=== PATIENT | male | born 1990 | race Caucasian/White ===

== ENCOUNTER 2017-07-26 20:42 | Emergency (ER) | payer MEDICAID ==
[~2017-07-26] VITALS: Ht 180.3 cm; Wt 57.6 kg
--- NOTE | 2017-07-26 20:50 | NUR ---
MARIBEL FOR A WITNESSED SEIZURE WHILE ROCK CLIMBING. PT AAOX3. MD AT FOR EVAL. NO ORAL TRAUMA NOTED. DENIES FALL, HEAD/NECK TRAUMA. NOTED ROPE LEVY FROM NECK AND LEFT SHOULDER AREA FROM BELAYING. IV ACCESS [employer]. VSS. SEIZURE PRECAUTIONS IMPLEMENTED. SAFETY AND COMFORT MEASURES PROVIDED. WILL MONITOR.
[2017-07-26] MEDS ORDERED: LORAZEPAM INJ 2 MG/ML VIAL ONE (21:02)
--- NOTE | 2017-07-26 21:04 | NUR ---
PT ACTIVELY HAVING A SEIZURE. DR RODRIGUES AWARE. ATIVAN 1MG IVP GIVEN PER ERMD VERBAL ORDER.
[2017-07-26] MEDS ORDERED: LEVETIRACETAM (500MG) 500 MG/5 ML VIAL IV ONE (21:11)
--- NOTE | 2017-07-26 21:15 | NUR ---
PT MEDICATED ORDERED. SEIZURE PRECAUTIONS MAINTAINED. ESTABLISHED ANOTHER IV ACCESS FIRST ONE WAS PULLED OUT DURING SEIZURE EPISODE. VSS. WILL MONITOR.
[2017-07-26] MEDS ORDERED: ONDANSETRON HCL/PF 4 MG/2 ML VIAL ONE (21:19)
[2017-07-26] MEDS ORDERED: ONDANSETRON HCL/PF - ER 4 MG/2 ML VIAL IV ONE (21:30)
[2017-07-26] MEDS ORDERED: LORAZEPAM INJ 2 MG/ML VIAL IV ONE (21:30)
[2017-07-26] MEDS ORDERED: LEVETIRACETAM (500MG) 500 MG in IV NS 0.9% 100 ML IV ONE (21:30)
--- NOTE | 2017-07-26 22:10 | NUR ---
FAMILY MEMBERS AT BS AND UPDATED WITH PT'S STATUS AND POC.
[2017-07-27] MEDS ORDERED: ONDANSETRON 4 MG TAB.RAPDIS ONE (00:36)
--- NOTE | 2017-07-27 00:39 | NUR ---
Patient discharged to home in stable condition. Written and verbal after care instructions given. Patient verbalizes understanding of instruction.
[2017-07-27 00:41] VITALS: BP 122/74
[2017-07-27] MEDS ORDERED: ONDANSETRON 4 MG TAB.RAPDIS SL ONE (01:00)
== END 2017-07-27 00:42 | disposition home or self-care (01) ==
LOC: ER 20:46
DX: R56.9 Unspecified convulsions (principal)
CPT/HCPCS: A4606; J1953; J2060; J2405; J7030; Q0162; Z7610

== ENCOUNTER 2021-01-01 09:18 | Emergency (ER) | payer MEDICAID, OTHER ==
[~2021-01-01] VITALS: Ht 182.9 cm; Wt 56.2 kg
--- NOTE | 2021-01-01 09:26 | NUR ---
paatient [id number] from home, had seizure episode lasted 20 secs, +oral trauma, BS 106. Alert and oriented x 4, breathing evenly and unlabored. Connected to the monitor and pulse ox. Kept comfortable, will continue to monitor accordingly. IV access on the Right hand g20.
[2021-01-01] MEDS ORDERED: LEVETIRACETAM (500MG) 1,000 MG in IV NS 0.9% 100 ML IV SCH (09:30)
[2021-01-01 09:40] LABS: BASOPHILS # (AUTO) 0.1 K/uL (0.0-0.2); BASOPHILS % (AUTO) 1.4 % (0.0-2.0); EOSINOPHILS % (AUTO) 2.5 % (0.0-6.0); HEMATOCRIT 42 % (39-51); HEMOGLOBIN 12.9 g/dL (13.5-17.5); LYMPHOCYTES # (AUTO) 3.3 K/uL (0.8-4.8); LYMPHOCYTES % (AUTO) 44.9 % (20.0-44.0); MEAN CORPUSCULAR HGB CONC 31 g/dl (31.0-36.0); MEAN CORPUSCULAR VOLUME 67 fL (80-96); MONOCYTES # (AUTO) 0.6 K/uL (0.1-1.30); MONOCYTES % (AUTO) 7.5 % (2.0-12.0); NEUTROPHILS # (AUTO) 3.3 K/uL (1.8-8.9); NEUTROPHILS % (AUTO) 43.7 % (43.0-81.0); PLATELET COUNT (AUTO) 196 K/uL (150-450); RED BLOOD CELL COUNT(AUTO) 6.17 MIL/uL (4.5-6.0); WHITE BLOOD COUNT (AUTO) 7.5 K/uL (4.3-11.0)
[2021-01-01 09:47] LABS: CALCIUM, SERUM 8.9 mg/dL (8.5-10.1); CREATININE 1.3 mg/dL (0.6-1.3); POTASSIUM 3.9 mmol/L (3.5-5.1)
[2021-01-01 09:52] LABS: ALBUMIN 4.4 g/dL (3.4-5.0); BILIRUBIN,DIRECT 0.3 mg/dL (0.0-0.2); BILIRUBIN,TOTAL 2.1 mg/dL (0.2-1.0); TOTAL PROTEIN, SERUM 7.3 g/dL (6.4-8.2)
[2021-01-01 11:14] VITALS: BP 94/56
[2021-01-01 12:02] LABS: EOSINOPHILS % (MANUAL) 1 % (0-4); LYMPHOCYTES % (MANUAL) 56 % (16-48); MONOCYTES % (MANUAL) 4 % (0-11.0); NEUTROPHILS % (MANUAL) 39 (42-76)
== END 2021-01-01 11:15 | disposition home or self-care (01) ==
LOC: ER 09:21
DX: G40.909 Epilepsy, unspecified, not intractable, without status epilepticus (principal)
CPT/HCPCS: 36415; 80048; 80076; 85007; 85025; 96365; 99284; J1953; J7030